=== PATIENT | female | born 1995 | race Caucasian/White ===

== ENCOUNTER 2017-10-01 00:17 | Emergency (ER) | payer OTHER ==
[~2017-10-01] VITALS: Ht 160 cm; Wt 77.1 kg
[~2017-10-01 00:17] MED LIST: AMOXICILLIN500 M2 PO; AMOXICILLIN500 MG PO; AMOXIL500 MG PO; BACTRIM DS 8001 TA1 PO; BENTYL10 MG PO; BIRTH CONTROL1 EAC1; FLEXERIL10 MG PO; HYDROCODONE BIT1 T11 PO; MACROBID100 M1 PO; MIRALAX POWDER255 GM PO; MOTRIN600 MG PO; MOTRIN800 MG PO; NKHM; PERCOCET 325 MG1 TAB PO; PREDNICOT10 MG PO; PROTONIX40 MG PO; VICODIN ES 7501 TAB PO; ZITHROMAX Z PA250 MG PO; ZOFRAN ODT4 MG SL; ZOFRAN4 MG PO; ZOVIRAX800 MG PO; [UNRECOGNIZED DRUG - OTHER]
[2017-10-01 00:21] VITALS: BP 125/75
[2017-10-01 00:40] LABS: BASO # 0.1 10*3/uL (0.0-0.1); BASO % 0.4 % (0.0-1.0); EOS # 0.3 10*3/uL (0.0-0.4); HEMATOCRIT 39.6 % (37.0-47.0); HEMOGLOBIN 13.1 g/dl (12.0-16.0); LYMPH # 2.8 10*3/uL (1.3-4.4); LYMPH % 24.8 % (27.0-41.0); MEAN CORPUSCULAR HGB 29.4 pg (27.0-31.0); MEAN CORPUSCULAR HGB CONC 33.1 g/dl (33.0-37.0); MEAN PLATELET VOLUME 9.5 fl (9.6-12.3); MONO # 0.5 10*3/uL (0.1-1.0); MONO % 4.7 % (3.0-9.0); NEUT # 7.5 10*3/uL (2.3-7.9); NEUT % 66.7 % (47.0-73.0); PLATELET COUNT AUTOMATED 300 10*3/uL (130-400); RED BLOOD COUNT 4.45 10*6/uL (4.10-5.10); WHITE BLOOD COUNT 11.3 10*3/uL (4.8-10.8)
[2017-10-01 00:47] LABS: BILIRUBIN NEGATIVE (NEGATIVE); BLOOD 2+ (NEGATIVE); CLARITY CLOUDY (CLEAR); COLOR YELLOW (YELLOW); GLUCOSE NEGATIVE (NEGATIVE); KETONE NEGATIVE (NEGATIVE); LEUKO ESTERASE NEGATIVE (NEGATIVE); NITRITE POSITIVE (NEGATIVE); PH 5.5 (5.0-9.0); SPECIFIC GRAVITY >= 1.030 (1.005-1.030); UROBILINOGEN 0.2 E.U./dl (0.2-1.0)
[2017-10-01 00:56] LABS: BACTERIA 4+; EPITHELIAL CELLS 50-55
[2017-10-01 00:57] LABS: ALBUMIN 3.7 gm/dl (3.1-4.5); ALKALINE PHOSPHATASE 85 U/L (45-117); BUN 14 mg/dl (7-24); CHLORIDE 107 mmol/L (98-107); CREATININE 1.05 mg/dL (0.55-1.02); LIPASE 154 U/L (73-393); POTASSIUM 4.4 mmol/L (3.5-5.1); SGOT/AST 16 IU/L (3-35); SGPT/ALT 19 U/L (12-78); SODIUM 142 mmol/L (136-145); TOTAL PROTEIN 8.4 gm/dL (6.4-8.2)
[2017-10-01] MEDS ORDERED: SEPTDS PO (01:18)
== END 2017-10-01 02:43 | disposition home or self-care (01) ==
LOC: ED 00:17
PROVIDERS: Physician Assistant
DX: N39.0 Urinary tract infection, site not specified (principal); Z79.899 Other long term (current) drug therapy

== ENCOUNTER 2018-03-20 00:14 | Emergency (ER) | payer OTHER ==
[~2018-03-20] VITALS: Wt 77.1 kg
[2018-03-20 00:14] VITALS: BP 158/89
[~2018-03-20 00:14] MED LIST changes: +SEPTDS PO
[2018-03-20] MEDS ORDERED: CEPHALEXIN500 M1 PO (00:28)
[2018-03-20] MEDS ORDERED: LIDEX 0.05% CRE15 GM T (00:28)
== END 2018-03-20 00:30 | disposition home or self-care (01) ==
LOC: ED 00:14
DX: S50.861A Insect bite (nonvenomous) of right forearm, initial encounter (principal); L08.9 Local infection of the skin and subcutaneous tissue, unspecified; F17.200 Nicotine dependence, unspecified, uncomplicated; Z79.899 Other long term (current) drug therapy; W57.XXXA Bitten or stung by nonvenomous insect and other nonvenomous arthropods, initial encounter; Y93.89 Activity, other specified; Y92.89 Other specified places as the place of occurrence of the external cause; Y99.9 Unspecified external cause status

== ENCOUNTER 2018-05-18 03:18 | Emergency (ER) | payer OTHER ==
[~2018-05-18] VITALS: Ht 160 cm; Wt 81.6 kg
[2018-05-18 03:18] VITALS: BP 141/88
[~2018-05-18 03:18] MED LIST changes: +CEPHALEXIN500 M1 PO; +LIDEX 0.05% CRE15 GM T
[2018-05-18 03:39] LABS: BILIRUBIN NEGATIVE (NEGATIVE); BLOOD TRACE-INTACT (NEGATIVE); CLARITY CLEAR (CLEAR); COLOR YELLOW (YELLOW); GLUCOSE NEGATIVE (NEGATIVE); KETONE NEGATIVE (NEGATIVE); LEUKO ESTERASE NEGATIVE (NEGATIVE); NITRITE NEGATIVE (NEGATIVE); SPECIFIC GRAVITY 1.025 (1.005-1.030); UROBILINOGEN 0.2 E.U./dl (0.2-1.0)
[2018-05-18 03:45] LABS: BACTERIA 2+; WBC 0-2 wbc/hpf (0-5)
[2018-05-18] MEDS ORDERED: PYRIDIUM200 M1 PO (03:46)
[2018-05-18] MEDS ORDERED: MACROBID100 M1 PO (03:46)
== END 2018-05-18 03:47 | disposition home or self-care (01) ==
LOC: ED 03:18
PROVIDERS: Emergency Medicine Emergency Medical Services
DX: R30.0 Dysuria (principal); M54.5 Low back pain; Z79.899 Other long term (current) drug therapy

== ENCOUNTER 2019-03-14 01:33 | Inpatient (IN) | payer OTHER ==
[~2019-03-14] VITALS: Ht 160 cm; Wt 104.0 kg
[2019-03-14 01:33] VITALS: BP 149/99
[~2019-03-14 01:33] MED LIST changes: +PYRIDIUM200 M1 PO
--- NOTE | 2019-03-14 02:04 | NUR ---
MARKED ARM ON LEFT ARM WITH SHARPIE AROUND REDNESS.
[2019-03-14 02:12] LABS: BILIRUBIN NEGATIVE (NEGATIVE); BLOOD 1+ (NEGATIVE); CLARITY SL CLOUDY (CLEAR); COLOR YELLOW (YELLOW); GLUCOSE NEGATIVE (NEGATIVE); KETONE NEGATIVE (NEGATIVE); LEUKO ESTERASE NEGATIVE (NEGATIVE); NITRITE POSITIVE (NEGATIVE); SPECIFIC GRAVITY >= 1.030 (1.005-1.030); UROBILINOGEN 0.2 E.U./dl (0.2-1.0)
[2019-03-14 02:18] LABS: BASO # 0.1 10*3/uL (0.0-0.1); BASO % 0.5 % (0.0-1.0); EOS # 0.6 10*3/uL (0.0-0.4); EOS % 5.1 % (1.0-4.0); HEMATOCRIT 42.1 % (37.0-47.0); HEMOGLOBIN 13.9 g/dl (12.0-16.0); LYMPH # 3.3 10*3/uL (1.3-4.4); LYMPH % 26.7 % (27.0-41.0); MEAN CELL VOLUME 88.1 fl (81.0-99.0); MEAN CORPUSCULAR HGB 29.1 pg (27.0-31.0); MEAN PLATELET VOLUME 9.4 fl (9.6-12.3); MONO # 0.6 10*3/uL (0.1-1.0); MONO % 4.9 % (3.0-9.0); NEUT # 7.6 10*3/uL (2.3-7.9); NEUT % 62.6 % (47.0-73.0); PLATELET COUNT AUTOMATED 277 10*3/uL (130-400); RED BLOOD COUNT 4.78 10*6/uL (4.10-5.10); RED CELL DISTRI WIDTH 12.5 % (0-14.5); WHITE BLOOD COUNT 12.2 10*3/uL (4.8-10.8)
[2019-03-14 02:21] LABS: BACTERIA 2+; EPITHELIAL CELLS 45-50; WBC 0-2 wbc/hpf (0-5)
[2019-03-14 02:34] LABS: ALBUMIN 3.4 gm/dl (3.1-4.5); ALKALINE PHOSPHATASE 113 U/L (45-117); BUN 12 mg/dl (7-24); CHLORIDE 109 mmol/L (98-107); CREATININE 1.08 mg/dL (0.55-1.02); POTASSIUM 3.2 mmol/L (3.5-5.1); SGOT/AST 26 IU/L (3-35); SGPT/ALT 44 U/L (12-78); SODIUM 142 mmol/L (136-145); TOTAL PROTEIN 8.2 gm/dL (6.4-8.2)
[2019-03-14 03:10] VITALS: BP 132/77
--- NOTE | 2019-03-14 03:10 | NUR ---
A 23, admitted to 4E, under the services of KATE Tripathi DO with a diagnosis of UTI, LYMPHANGITIS, CELLULITIS L FOREARM. Chief complaint is ITCHING/REDNESS OF L ARM. Patient arrived via ambulatory from ER. Monitor applied. Initial assessment completed. Vital signs taken and recorded. KATE TRIPATHI DO notified of admission to the unit. Orders received. See assessment for past medical history, medications and allergies. Patient and/or family oriented to unit. [facility] visitation policy reviewed. Clothing/patient valuable form completed. KALEY GIBBS
[2019-03-14] MEDS ORDERED: PREVIFEM TABLE1 EACH PO (03:35)
[2019-03-14] MEDS ORDERED: SPRINTEC 35 MCG1 TA1 PO (03:35)
--- NOTE | 2019-03-14 03:40 | NUR ---
HOME MED REC UP TO DATE PER MED CLAIMS HX AND PATIENT RECALL.
--- NOTE | 2019-03-14 03:44 | NUR ---
PATIENT REQUESTING SOMETHING FOR ITCHING TO L ARM. NOTIFIED. NEW ORDERS TO FOLLOW. ALSO CLARIFIED MONITORED STATUS. PATIENT IS TO BE MONITORED PER .
--- NOTE | 2019-03-14 04:25 | NUR ---
IV BENADRYL ADMINISTERED SLOWLY PER ONE TIME ORDER FOR C/O ITCHING. VENUE ATTENDANT APPLIED. WILL MONITOR. CALL LIGHT LEFT IN REACH.
--- NOTE | 2019-03-14 05:05 | NUR ---
EARLIER BENADRYL EFFECTIVE PER PT. DENIES ITCHING AT THIS TIME. WILL CONTINUE TO MONITOR.
--- NOTE | 2019-03-14 06:49 | NUR ---
MELITA,SURINDER Bradley [id number] Please refer to the physician's history and physical for past medical history, comorbid conditions, and allergies. Diagnosis: UTI, LYMPHANGITIS, CELLULITIS OF LEFT FOREARM Gutierrez Score: 22,LOW OR NO RISK WOUND DESCRIPTIONS: Location of the wound: left forearm Thickness: Full Size: 0.2cm x 0.5cm x <0.1cm Tunneling: none Undermining: none Sinus Tract: none Presence of Exudate: none Amount: None Color: Yellow, red, brown Odor: None Periwound Skin Appearance: Erythema extends from 33.0cm x 14.5cm x 0.1cm, warmth Wound edges: approximated Pain (associated with wound): none at time of assessment How does patient state this happened? pt stated it started as a bump on thursday and the redness kept getting worse and very itchy. Surface the patient is resting on: Isoflex SKIN PREVENTION RECOMMENDATION: 1. Pressure redistribution support surface as appropriate 2. Elevate heels 3. Remove boots/TEDS every shift and reapply 4. Head of bed 30 degrees as tolerated 5. Assess nutrition and hydration 6. Manage moisture 7. Avoid the use of containment devices while in bed 8. Use absorptive products on surfaces limit layers of linens on bed 9. Turn and reposition every 1-2 hours in bed and every 1 hour in chair as tolerated 10. Weight shifts every 15 minutes while up in chair 11. Offloading with pillows or device to keep heels elevated off bed 12. Monitor skin at least every shift 13. Inspect under medical devices twice a day WOUND TREATMENT RECOMMENDATIONS: Full thickness guidelines: Cleanse left forearm with nss and apply sureprep around the wound therahoney to wound bed and cover with optifoam gentle. Consult surgery for possible I&D. Patient stated she will care for the area at home when she is discharged she stated she doesn't need follow up wound care in an outpatient setting.
--- NOTE | 2019-03-14 06:50 | NUR ---
WOUND RN CRYSTAL IN TO SEE PATIENT AT THIS TIME. NEW WOUND RECOMMENDATIONS TO FOLLOW.
--- NOTE | 2019-03-14 10:57 | NUR ---
Dr. Chahal notified of wound care recommendations.
[2019-03-14 12:00] VITALS: BP 136/66
[2019-03-14 16:00] VITALS: BP 121/71
[2019-03-14 20:00] VITALS: BP 112/70
--- NOTE | 2019-03-14 23:30 | NUR ---
ASSESSMENT COMPLETED. SEE ASSESSMENT INTERVENTION. RESPIRATIONS EASY NONLABOURED. NO SIGNS OR SYMPTOMS OF DISTRESS. VOICES NO CONCERNS AT THIS TIME
[2019-03-15] VITALS: BP 130/93
--- NOTE | 2019-03-15 03:40 | NUR ---
LYING IN BED EYES CLOSED. NO SIGNS OR SYMPTOMS OF DISTRESS. RESPIRATIONS EASY NONLABOURED.
[2019-03-15 06:35] LABS: BASO % 0.5 % (0.0-1.0); EOS # 0.4 10*3/uL (0.0-0.4); EOS % 4.8 % (1.0-4.0); HEMATOCRIT 41.1 % (37.0-47.0); HEMOGLOBIN 13.3 g/dl (12.0-16.0); LYMPH # 2.7 10*3/uL (1.3-4.4); LYMPH % 31.7 % (27.0-41.0); MEAN CELL VOLUME 88.2 fl (81.0-99.0); MEAN CORPUSCULAR HGB 28.5 pg (27.0-31.0); MEAN CORPUSCULAR HGB CONC 32.4 g/dl (33.0-37.0); MEAN PLATELET VOLUME 9.7 fl (9.6-12.3); MONO # 0.5 10*3/uL (0.1-1.0); MONO % 5.9 % (3.0-9.0); NEUT # 4.9 10*3/uL (2.3-7.9); NEUT % 56.8 % (47.0-73.0); PLATELET COUNT AUTOMATED 239 10*3/uL (130-400); RED BLOOD COUNT 4.66 10*6/uL (4.10-5.10); RED CELL DISTRI WIDTH 12.6 % (0-14.5); WHITE BLOOD COUNT 8.6 10*3/uL (4.8-10.8)
[2019-03-15 07:06] LABS: BUN 9 mg/dl (7-24); CHLORIDE 105 mmol/L (98-107); POTASSIUM 3.6 mmol/L (3.5-5.1); SODIUM 139 mmol/L (136-145)
[2019-03-15 07:07] LABS: PHOSPHOROUS 3.4 mg/dL (2.5-4.9)
[2019-03-15 08:00] VITALS: BP 110/66; BP 110/70
--- NOTE | 2019-03-15 09:00 | NUR ---
Swing Saw Operator in to talk to patient. Patient states lives at home with boyfriend and son. There are few steps in the home. Physician: cordelia beard [facility]: none Patient's level of ADLs: INDEPENDENT Patient has working utilities: all working DME: none Follow-up physician's appointment after d/c: will be made by hospitalist nurse director upon discharge Does patient want to access PORTAL?: no Discharge plan discussed with patient, patient lives at home with boyfriend and son, she is independent in adls and ambulation, drives, patient states she will be going back home when able and denies any home needs. ABE MOYER
--- NOTE | 2019-03-15 09:49 | NUR ---
Nutritional Support Services Note: Pt with Dx of UTI, lymphangitis,cellulitis of left forearm. Ht.5'3 Wt.229# Regular diet as ordered. Encouraged pt to increase fluids and to eat a healthy diet. Encouraged adequate protein. No other nutrition intervention needed at this time. Will follow as needed. Kristin Del Torod
[2019-03-15] MEDS ORDERED: CLEOCIN HCL150 MG PO (10:16)
[2019-03-15] MEDS ORDERED: CLINDAMYCIN HC300 MG PO (10:16)
--- NOTE | 2019-03-15 10:57 | NUR ---
PATIENT REFUSED WOUND PHOTOS.
--- NOTE | 2019-03-15 10:58 | NUR ---
Discharge instructions reviewed with patient/family. Patient receptive and verbalizes understanding. Follow-up care arranged. Written instructions given to patient/family. HEPLOCK DISCONTINUED. PATIENT AMBULATORY OFF FLOOR. ULYSSES GARVIN
== END 2019-03-15 10:58 | disposition home or self-care (01) | DRG 603 ==
LOC: ED 01:33 → EDHOLD 02:52 → 4E 02:52
PROVIDERS: Emergency Medicine; Student in an Organized Health Care Education/Training Program; ADMIT Internal Medicine
DX: L03.114 Cellulitis of left upper limb (principal); E44.1 Mild protein-calorie malnutrition; N39.0 Urinary tract infection, site not specified; Z68.41 Body mass index [BMI] 40.0-44.9, adult; E87.6 Hypokalemia; E87.8 Other disorders of electrolyte and fluid balance, not elsewhere classified; Z72.0 Tobacco use; Z82.49 Family history of ischemic heart disease and other diseases of the circulatory system; Z80.9 Family history of malignant neoplasm, unspecified; Z82.3 Family history of stroke; Z79.899 Other long term (current) drug therapy

== ENCOUNTER 2020-06-06 00:17 | Emergency (ER) | payer OTHER ==
[~2020-06-06] VITALS: Wt 98.0 kg
[~2020-06-06 00:17] MED LIST changes: +CLEOCIN HCL150 MG PO; +CLINDAMYCIN HC300 MG PO; +PREVIFEM TABLE1 EACH PO; +SPRINTEC 35 MCG1 TA1 PO
[2020-06-06 00:33] VITALS: BP 148/88
== END 2020-06-06 02:37 | disposition home or self-care (01) ==
LOC: ED 00:17
DX: S92.355A Nondisplaced fracture of fifth metatarsal bone, left foot, initial encounter for closed fracture (principal); F17.200 Nicotine dependence, unspecified, uncomplicated; Z79.899 Other long term (current) drug therapy; W22.8XXA Striking against or struck by other objects, initial encounter; Y93.11 Activity, swimming; Y92.34 Swimming pool (public) as the place of occurrence of the external cause; Y99.8 Other external cause status

== ENCOUNTER 2021-06-04 21:01 | Emergency (ER) | payer OTHER ==
[~2021-06-04] VITALS: Ht 160 cm; Wt 88.9 kg
[2021-06-04 21:19] VITALS: BP 149/103
== END 2021-06-05 00:05 | disposition home or self-care (01) ==
LOC: ED 21:01
DX: S96.912A Strain of unspecified muscle and tendon at ankle and foot level, left foot, initial encounter (principal); Z79.899 Other long term (current) drug therapy; Z98.890 Other specified postprocedural states; X58.XXXA Exposure to other specified factors, initial encounter; Y93.89 Activity, other specified; Y92.89 Other specified places as the place of occurrence of the external cause; Y99.8 Other external cause status

== ENCOUNTER 2021-06-14 01:09 | Emergency (ER) | payer OTHER ==
[~2021-06-14] VITALS: Ht 160 cm; Wt 90.7 kg
[2021-06-14 01:21] VITALS: BP 158/98
== END 2021-06-14 03:09 | disposition home or self-care (01) ==
LOC: ED 01:09
DX: T78.49XA Other allergy, initial encounter (principal); F17.200 Nicotine dependence, unspecified, uncomplicated; Z79.2 Long term (current) use of antibiotics; Z79.899 Other long term (current) drug therapy; Z90.89 Acquired absence of other organs; X58.XXXA Exposure to other specified factors, initial encounter

== ENCOUNTER → 2021-08-30 | Outpatient (CLI) | payer OTHER | END | disposition home or self-care (01) | LOC: US 10:00 | PROVIDERS: ATTEND Nurse Practitioner Women's Health | DX: R10.2 Pelvic and perineal pain (principal) ==

== ENCOUNTER 2022-05-18 19:13 | Emergency (ER) | payer OTHER ==
[2022-05-18 19:19] VITALS: BP 166/100
== END 2022-05-18 19:31 | disposition home or self-care (01) ==
LOC: ED 19:13
DX: T63.441A Toxic effect of venom of bees, accidental (unintentional), initial encounter (principal); Y92.89 Other specified places as the place of occurrence of the external cause

== ENCOUNTER 2022-06-29 21:00 | Emergency (ER) | payer OTHER ==
[~2022-06-29] VITALS: Wt 90.7 kg
[2022-06-29 21:07] VITALS: BP 160/100
[2022-06-29 22:00] LABS: BILIRUBIN Negative (Negative); BLOOD 1+ (Negative); CLARITY Clear (Clear); COLOR Yellow (Yellow); GLUCOSE Negative (Negative); KETONE Trace (Negative); LEUKO ESTERASE Negative (Negative); NITRITE Negative (Negative); SPECIFIC GRAVITY 1.025 (1.001-1.030)
[2022-06-29 22:24] LABS: BACTERIA 1+; EPITHELIAL CELLS TNTC; WBC 0-2 wbc/hpf (0-5)
[2022-06-29] MEDS ORDERED: CYCLOBENZAPRINE10 MG PO (22:35)
[2022-06-29] MEDS ORDERED: NAPROSYN500 MG PO (22:35)
== END 2022-06-29 22:45 | disposition home or self-care (01) ==
LOC: ED 21:00
PROVIDERS: Emergency Medicine
DX: M54.50 Low back pain, unspecified (principal); R11.10 Vomiting, unspecified; F17.200 Nicotine dependence, unspecified, uncomplicated; Z88.1 Allergy status to other antibiotic agents; Z79.899 Other long term (current) drug therapy; Z90.89 Acquired absence of other organs

== ENCOUNTER → 2022-11-13 | Outpatient (CLI) | payer OTHER ==
[~2022-11-13] MED LIST changes: +CYCLOBENZAPRINE10 MG PO; +NAPROSYN500 MG PO
== END | disposition home or self-care (01) ==
LOC: US 14:00
PROVIDERS: ATTEND Nurse Practitioner Women's Health
DX: R10.2 Pelvic and perineal pain (principal)

== ENCOUNTER 2022-12-10 15:44 | Emergency (ER) | payer OTHER ==
[~2022-12-10] VITALS: Wt 90.7 kg
[2022-12-10 16:24] VITALS: BP 151/87
[2022-12-10] MEDS ORDERED: LISINOPRIL5 MG PO (16:25)
[2022-12-10 17:33] LABS: BILIRUBIN Negative (Negative); BLOOD 1+ (Negative); CLARITY Clear (Clear); COLOR Yellow (Yellow); GLUCOSE Negative (Negative); KETONE Trace (Negative); LEUKO ESTERASE Negative (Negative); NITRITE Negative (Negative); PH 5.5 (4.5-8.0); SPECIFIC GRAVITY >= 1.030 (1.001-1.030)
[2022-12-10 17:47] LABS: BACTERIA 1+
[2022-12-10 18:05] LABS: BASO # 0.1 10*3/uL (0.0-0.1); BASO % 0.5 % (0.0-1.0); EOS # 0.3 10*3/uL (0.0-0.4); EOS % 3.2 % (1.0-4.0); HEMATOCRIT 39.3 % (37.0-47.0); LYMPH # 2.7 10*3/uL (1.3-4.4); LYMPH % 26.8 % (27.0-41.0); MEAN CELL VOLUME 89.3 fl (81.0-99.0); MEAN CORPUSCULAR HGB 29.1 pg (27.0-31.0); MEAN CORPUSCULAR HGB CONC 32.6 g/dl (33.0-37.0); MEAN PLATELET VOLUME 8.9 fl (9.6-12.3); MONO # 0.5 10*3/uL (0.1-1.0); NEUT # 6.5 10*3/uL (2.3-7.9); NEUT % 64.3 % (47.0-73.0); PLATELET COUNT AUTOMATED 276 10*3/uL (130-400); RED CELL DISTRI WIDTH 12.4 % (0-14.5)
[2022-12-10 18:30] LABS: ALKALINE PHOSPHATASE 73 U/L (46-116); BUN 15 mg/dl (9-23); CHLORIDE 105 mmol/L (98-107); LIPASE 31 U/L (12-53); POTASSIUM 4.2 mmol/L (3.4-5.1); SGPT/ALT 34 U/L (10-49); TOTAL PROTEIN 7.4 gm/dL (6.0-8.0)
== END 2022-12-10 21:26 | disposition home or self-care (01) ==
LOC: ED 15:44
PROVIDERS: Emergency Medicine; Student in an Organized Health Care Education/Training Program
DX: K29.70 Gastritis, unspecified, without bleeding (principal); K29.80 Duodenitis without bleeding; R11.2 Nausea with vomiting, unspecified; Z88.8 Allergy status to other drugs, medicaments and biological substances; Z90.89 Acquired absence of other organs; Z87.891 Personal history of nicotine dependence